=== PATIENT | male | born 1955 | race Hispanic/Latino ===

== ENCOUNTER → 2018-12-12 | Outpatient (CLI) | payer MEDICAID ==
[~2018-12-12] VITALS: Ht 180.3 cm; Wt 179.6 kg
[~2018-12-12] MED LIST: REGADENOSON 0.4 MG/5 ML PF SYG IVP SCH
== END | disposition home or self-care (01) ==
LOC: SHCH 08:12
PROVIDERS: ATTEND Internal Medicine Cardiovascular Disease
DX: Z01.810 Encounter for preprocedural cardiovascular examination (principal)
CPT/HCPCS: 78452; 93017; 96374; A9500 ×2; J2785

== ENCOUNTER 2019-02-16 09:00 | Inpatient (IN) | payer MEDICAID ==
[~2019-02-16] VITALS: Ht 182.9 cm; Wt 172.6 kg
[~2019-02-16 09:00] MED LIST changes: +AEC81 PO; +ALLO100T PO; +AMLO10TA7 PO; +BUDE10.2 IH; +FURO40TA5 PO; +LISI40TA4 PO; +METO50TA18 PO; +METO5TAB7 PO; +MINO2.5T3 PO; +OMEP40CA37 PO; -REGADENOSON 0.4 MG/5 ML PF SYG IVP SCH; +ROSU40 PO; +TAMS-1 PO; +TIOT4MIS5 IH
[2019-02-16 10:01] VITALS: BP 147/69
[2019-02-16 10:03] LABS: BASOPHILS % (AUTO) 0.4 % (0.0-5.0); EOSINOPHILS % (AUTO) 3.6 % (0.0-8.0); HEMATOCRIT 31.5 % (42-54); LYMPHOCYTES % (AUTO) 27.8 % (21.0-51.0); MEAN CORPUSCULAR HEMOGLOBIN 31.2 pg (27.0-33.0); MEAN CORPUSCULAR VOLUME 89.1 fL (79-99); MONOCYTES % (AUTO) 7.4 % (3.0-13.0); NEUTROPHILS % (AUTO) 60.8 % (40.0-77.0); PLATELET COUNT (AUTO) 229 K/uL (130-400); RED BLOOD CELL COUNT(AUTO) 3.54 MIL/uL (4.50-6.20); RED CELL DISTRIBUTION WIDTH 13.8 % (11.0-15.5); WHITE BLOOD COUNT (AUTO) 6.5 K/uL (4.8-10.8)
[2019-02-16 10:19] LABS: INR 0.96 (0.85-1.15); PARTIAL THROMBOPLASTIN TIME 25.4 SEC (26.3-35.5); PROTHROMBIN TIME 10.1 SEC (9.6-11.6)
[2019-02-16 10:22] LABS: ALBUMIN 3.9 g/dL (3.5-5.0); BILIRUBIN,TOTAL 0.3 mg/dL (0.2-1.0); CREATININE 2.9 mg/dL (0.5-1.5); POTASSIUM 3.7 mmol/L (3.5-5.1); TOTAL PROTEIN, SERUM 8.2 g/dL (6.0-8.3)
[2019-02-16] MEDS ORDERED: NOVOLIN SQ ×3 (10:30)
[2019-02-16 10:32] LABS: HEMOGLOBIN A1C 8.1 % (4.0-6.0)
--- NOTE | 2019-02-16 15:02 | NUR ---
SPOKE TO SURESH HERNÁNDEZ/STAFF WILL REPORT ABNORMAL LABS TO , NO NEW ORDERS AT THIS TIME. Addendum: 02/16/19 at 1507 by ÓSCAR OCAMPO RN RN ALSO SPOKE TO CHANDRIKA GUERRERO RN WITH ABNORMAL LABS NO NEW ORDERS.
[2019-02-20] VITALS (44 sets, daily range): BP systolic 82–162; BP diastolic 34–78
[2019-02-20] MEDS: CEFAZOLIN SODIUM 1 GM VIAL IVP SCH (06:00)
[2019-02-20] MEDS ORDERED: SODIUM CHLORIDE 0.9% 1000ML 1,000 ML IV ONE (07:45)
[2019-02-20] MEDS ORDERED: NITROGLYCERIN 50 MG/D5% WATER 1 BOT ONE (07:57)
[2019-02-20] MEDS ORDERED: EPINEPHRINE 1 MG/ML 30ML VIAL IJ ONE (07:57)
[2019-02-20] MEDS ORDERED: LIDOCAINE PF 2% 5ML ABBOJECT ONE (08:10)
[2019-02-20] MEDS ORDERED: FENTANYL CITRATE PF 50 MCG/1 ML 20ML VIAL IJ ONE (08:10)
[2019-02-20] MEDS ORDERED: HEPARIN SODIUM 1000UNIT/ML 10ML VIAL ONE ×2 (08:10→08:27)
[2019-02-20] MEDS ORDERED: PROPOFOL 10 MG/ML 20ML VIAL IV ONE (08:10)
[2019-02-20] MEDS ORDERED: PROTAMINE SULFATE 10 MG/ML 25ML VIAL IV ONE (08:10)
[2019-02-20] MEDS ORDERED: ESMOLOL HCL 10 MG/ML 10 ML VIAL ONE ×2 (08:10→08:12)
[2019-02-20] MEDS ORDERED: EPINEPHRINE 1 MG/ML AMPULE ONE (08:10)
[2019-02-20] MEDS ORDERED: SODIUM BICARB 50MEQ 50ML VIAL ONE (08:10)
[2019-02-20] MEDS ORDERED: NOREPINEPHRINE BITARTRATE 1 MG/1 ML ML IV ONE (08:10)
[2019-02-20] MEDS ORDERED: AMINOCAPROIC ACID 250 MG/ML 20 ML VIAL IV ONE (08:10)
[2019-02-20] MEDS ORDERED: MIDAZOLAM HCL 1 MG/ML 5ML VIAL ONE (08:11)
[2019-02-20] MEDS ORDERED: GLYCOPYRROLATE 1 MG/5 ML SYRINGE ONE (08:11)
[2019-02-20] MEDS ORDERED: ROCURONIUM 10MG/1ML SYR 10 MG/ML ML ONE ×2 (08:11→09:05)
[2019-02-20] MEDS ORDERED: VASOPRESSIN 20 UNITS/ML 1ML VIAL ONE (08:12)
[2019-02-20] MEDS ORDERED: LIDOCAINE HCL-MPF 1% 5ML AMP IJ ONE (08:12)
[2019-02-20] MEDS ORDERED: AMIODARONE HCL 50 MG/ML 3 ML VIAL ONE ×2 (08:12→10:50)
[2019-02-20] MEDS ORDERED: MAGNESIUM SULFATE 1 GM/2 ML VIAL ONE (08:13)
[2019-02-20] MEDS ORDERED: ETOMIDATE 2 MG/ML 10 ML VIAL ONE (08:13)
[2019-02-20] MEDS ORDERED: SUCCINYLCHOLINE 200MG/10ML SYR ONE (08:15)
[2019-02-20] MEDS ORDERED: BACITRACIN 50,000 UNIT VIAL ONE (08:35)
[2019-02-20] MEDS ORDERED: PAPAVERINE HCL 30 MG/ML 2ML VIAL ONE (08:35)
[2019-02-20 09:03] LABS: ABG HCO3 24.8 mmol/L (21.0-28.0); ABG OXYGEN SATURATION 98.4 % (95.0-99.0); ABG PCO2 46 mmHg (35-48)
[2019-02-20] MEDS ORDERED: INSULIN HUMULIN R 100 UNIT/ML 3ML ONE ×2 (09:08→12:30)
[2019-02-20] MEDS ORDERED: SUB TO ALBUTEROL 2.5MG/3ML NEBULES PER P&T IH ONE (09:13)
[2019-02-20] MEDS ORDERED: SODIUM CHLORIDE 0.9% 500ML 500 ML IV SCH (09:41)
[2019-02-20 09:44] LABS: ABG BASE EXCESS 0.6 mmol/L (-2.0-3.0); ABG HCO3 26.2 mmol/L (21.0-28.0); ABG OXYGEN SATURATION 98.2 % (95.0-99.0); ABG PCO2 46 mmHg (35-48)
[2019-02-20] MEDS ORDERED: SODIUM CHLORIDE 0.9% 1000ML 1,000 ML IV SCH (09:45)
[2019-02-20] MEDS ORDERED: ONDANSETRON HCL 4 MG/2 ML VIAL IV PRN (09:45)
[2019-02-20] MEDS ORDERED: NOREPINEPHRINE 4MG/NS 250ML 250 ML IV PRN (09:45)
[2019-02-20] MEDS ORDERED: POTASSIUM CHLORIDE 20MEQ/100ML 100 ML IV PRN (09:45)
[2019-02-20] MEDS ORDERED: SODIUM CHLORIDE 0.9% 10 ML VIAL IVP PRN (09:45)
[2019-02-20] MEDS ORDERED: DEXTROSE 50%-WATER 50 ML DISP.SYRIN IV PRN (09:45)
[2019-02-20] MEDS ORDERED: NITROGLYCERIN 50 MG/D5% WATER 250 BOT IV SCH (09:45)
[2019-02-20] MEDS ORDERED: PROPOFOL 1000 MG/100 ML 100 ML IV PRN (09:45)
[2019-02-20] MEDS ORDERED: EPINEPHRINE 8 MG in DEXTROSE 5%-WATER 250 ML IV PRN (09:45)
[2019-02-20] MEDS ORDERED: SODIUM CHLORIDE 0.9% 250 ML IV PRN (09:45)
[2019-02-20] MEDS ORDERED: ACETAMINOPHEN 325 MG TAB PO PRN (09:45)
[2019-02-20] MEDS ORDERED: POTASSIUM PHOS 15 mMOL+NS250ML 250 ML IV PRN (09:45)
[2019-02-20] MEDS ORDERED: GLUCAGON 1MG KIT 1 MG ML IM PRN (09:45)
[2019-02-20] MEDS ORDERED: MORPHINE SULFATE 2 MG/ML 1ML SYG IV PRN (09:45)
[2019-02-20] MEDS ORDERED: ACETAMINOPHEN 650 MG SUPPOSITORY RC PRN (09:45)
[2019-02-20] MEDS ORDERED: AMINOCAPROIC ACID 15,000 MG in SODIUM CHLORIDE 0.9% 250 ML IV SCH (09:45)
[2019-02-20 10:15] LABS: ABG BASE EXCESS 0.7 mmol/L (-2.0-3.0); ABG HCO3 25.8 mmol/L (21.0-28.0); ABG OXYGEN SATURATION 98.5 % (95.0-99.0); ABG PCO2 43 mmHg (35-48)
[2019-02-20 11:03] LABS: ABG BASE EXCESS -0.6 mmol/L (-2.0-3.0); ABG HCO3 24.5 mmol/L (21.0-28.0); ABG OXYGEN SATURATION 98.5 % (95.0-99.0); ABG PCO2 42 mmHg (35-48)
[2019-02-20 11:14] LABS: ABG BASE EXCESS 1.2 mmol/L (-2.0-3.0); ABG HCO3 25.9 mmol/L (21.0-28.0); ABG OXYGEN SATURATION 98.6 % (95.0-99.0); ABG PCO2 42 mmHg (35-48)
[2019-02-20 11:28] LABS: ABG BASE EXCESS 0.1 mmol/L (-2.0-3.0); ABG HCO3 25.4 mmol/L (21.0-28.0); ABG OXYGEN SATURATION 98.7 % (95.0-99.0); ABG PCO2 44 mmHg (35-48)
[2019-02-20 12:19] LABS: ABG BASE EXCESS -1.2 mmol/L (-2.0-3.0); ABG OXYGEN SATURATION 98.8 % (95.0-99.0); ABG PCO2 36 mmHg (35-48)
--- NOTE | 2019-02-20 12:43 | NUR ---
PT WAS RECEIVED FROM [facility] WITH THE SURGERY STAFF AND DR. Miramontes. SEE ASSESSMENT AND V/S DOCUMENTATION. PT WAS CONNECTED TO VENTILATOR PRESCRIBED. PT HAS MINIMAL URINE OUTPUT AND CHEST TUBE DRAINAGE.
[2019-02-20 13:08] LABS: ABG HCO3 20.9 mmol/L (21.0-28.0); ABG OXYGEN SATURATION 90.7 % (95.0-99.0); ABG PCO2 42 mmHg (35-48)
[2019-02-20 13:18] LABS: MEAN CORPUSCULAR HEMOGLOBIN 30.3 pg (27.0-33.0); MEAN CORPUSCULAR HGB CONC 33.9 g/dL (32.0-36.0); MEAN CORPUSCULAR VOLUME 89.4 fL (79-99); PLATELET COUNT (AUTO) 230 K/uL (130-400); RED BLOOD CELL COUNT(AUTO) 2.91 MIL/uL (4.50-6.20); RED CELL DISTRIBUTION WIDTH 13.9 % (11.0-15.5); WHITE BLOOD COUNT (AUTO) 21.3 K/uL (4.8-10.8)
--- NOTE | 2019-02-20 13:30 | NUR ---
PT'S FAMILY HERE TO VISIT WITH PATIENT AND LARGE AMOUNT OF FAMILY MEMBERS WERE ADVISED OF THE PATIENT BEING SLIGHTLY AWAKE AND WILL NOD YES OR NO APPROPRIATELY. VISITING TIMES WERE EXPLAINED TO PATIENT'S FAMILY MEMBERS AND WERE ACKNOWLEDGED.
[2019-02-20 13:33] LABS: INR 1.03 (0.85-1.15); PARTIAL THROMBOPLASTIN TIME 24.4 SEC (26.3-35.5); PROTHROMBIN TIME 10.8 SEC (9.6-11.6)
[2019-02-20 13:37] LABS: CREATININE 2.7 mg/dL (0.5-1.5); MAGNESIUM 1.3 mg/dL (1.80-2.40); PHOSPHORUS 4.4 mg/dL (2.5-4.9); POTASSIUM 3.5 mmol/L (3.5-5.1)
[2019-02-20] MEDS: MORPHINE SULFATE 4 MG/1ML SYG IV PRN ×2 (14:08→20:43)
[2019-02-20] MEDS: ALBUMIN (HUMAN) 5% 250 ML IV PRN ×2 (14:09→14:13)
[2019-02-20] MEDS: INSULIN REGULAR, HUMAN 3ML 100 UNIT in SODIUM CHLORIDE 0.9% 99 ML IV SCH ×4 (14:11→21:19)
[2019-02-20] MEDS: MAGNESIUM 2GM PREMIX 50ML 50 ML IV PRN (14:39)
[2019-02-20] MEDS: CEFAZOLIN SODIUM 1 GM VIAL IV SCH ×2 (14:39→23:48)
[2019-02-20 14:57] LABS: ABG BASE EXCESS -5.7 mmol/L (-2.0-3.0); ABG HCO3 20.3 mmol/L (21.0-28.0); ABG OXYGEN SATURATION 94.2 % (95.0-99.0); ABG PCO2 42 mmHg (35-48)
[2019-02-20] MEDS: SODIUM BICARB 50MEQ 50ML VIAL IV PRN ×5 (15:02→18:26)
[2019-02-20 16:23] LABS: ABG HCO3 20.1 mmol/L (21.0-28.0); ABG OXYGEN SATURATION 93.9 % (95.0-99.0); ABG PCO2 37 mmHg (35-48)
[2019-02-20] MEDS: IPRATROPIUM/ALBUTEROL SULFATE 3 ML SOLUTION IH SCH (17:44)
--- NOTE | 2019-02-20 17:45 | NUR ---
ABG'S HAVE BEEN OBTAINED AND O2 REMAINS LOW AND HAVE GIVEN 6 AMPS OF BICARB TOTAL AND WILL CONTINUE TO MONITOR THE ABG'S PT IS WIDE AWAKE AND FOLLOWS COMMANDS.
--- NOTE | 2019-02-20 17:50 | NUR ---
JUST CALLED AND WANTS THE NURSING STAFF TO BE AWARE OF PT NEEDING A TOTAL RIGHT KNEE REPLACEMENT AND HAVE TO BE CAREFUL WHEN PHYSICAL THERAPY WORKS WITH THE PATIENT.
[2019-02-20 18:19] LABS: ABG BASE EXCESS -2.2 mmol/L (-2.0-3.0); ABG HCO3 22.5 mmol/L (21.0-28.0); ABG OXYGEN SATURATION 95.8 % (95.0-99.0); ABG PCO2 38 mmHg (35-48)
[2019-02-20] MEDS: BUDESONIDE 0.5 MG/2 ML INH IH SCH (19:13)
--- NOTE | 2019-02-20 19:59 | NUR ---
Received patient at 1900 intubated and fully awake, chest tubes in place, delacruz producing minimal urine, on 0.03 mcg/kg/min of Epi and 2 mcg /min of Levofed. These medications were titrated for blood pressure parameters. Dr. Cleveland called at 1930 and was updated on patient status. Field Crop Harvest Contractor informed MD that patient is making slow progress on the bicarb base excess level on the ABG. Dr. Cleveland ordered Bipap to be used on this patient post extubation if needed.
[2019-02-20 20:10] LABS: ABG BASE EXCESS 2.2 mmol/L (-2.0-3.0); ABG HCO3 26.3 mmol/L (21.0-28.0); ABG OXYGEN SATURATION 95.2 % (95.0-99.0); ABG PCO2 39 mmHg (35-48)
[2019-02-20] MEDS ORDERED: CALCIUM GLUCONATE 1 GM/10 ML VIAL IV ONE (20:21)
[2019-02-20] MEDS ORDERED: SODIUM CHLORIDE 0.9% 50 ML IV ONE (20:23)
[2019-02-20] MEDS: CALCIUM GLUCONATE 1 GM in SODIUM CHLORIDE 0.9% 50 ML IV PRN (20:25)
[2019-02-20] MEDS: FAMOTIDINE/PF 20 MG/2 ML VIAL IV SCH (20:31)
[2019-02-20] MEDS ORDERED: SUB PER P&T FOR ASTHMA OR COPD RECOMMENDATION IH SCH (21:00)
--- NOTE | 2019-02-20 21:15 | NUR ---
Patient passed ventilator weaning trials and ABG base excess is 2. Patient extubated at 2054 to aerosol mask at Fio2 of 40%. Will recheck ABG in 2 hrs per protocol.
[2019-02-20] MEDS: ATORVASTATIN CALCIUM 40 MG TABLET PO SCH (21:22)
[2019-02-20] MEDS: TAMSULOSIN HCL 0.4 MG CAP.ER.24H PO SCH (21:22)
[2019-02-20 22:17] LABS: ABG BASE EXCESS 4.2 mmol/L (-2.0-3.0); ABG HCO3 28.3 mmol/L (21.0-28.0); ABG PCO2 40 mmHg (35-48)
[2019-02-20] MEDS: TRAMADOL HCL 50 MG TABLET PO PRN (22:17)
[2019-02-21] VITALS (50 sets, daily range): BP systolic 100–173; BP diastolic 39–90
[2019-02-21] MEDS: IPRATROPIUM/ALBUTEROL SULFATE 3 ML SOLUTION IH SCH ×5 (00:03→23:54)
[2019-02-21] MEDS: INSULIN REGULAR, HUMAN 3ML 100 UNIT in SODIUM CHLORIDE 0.9% 99 ML IV SCH ×4 (03:12→20:25)
[2019-02-21 03:41] LABS: ABG HCO3 27.4 mmol/L (21.0-28.0); ABG OXYGEN SATURATION 92.8 % (95.0-99.0); ABG PCO2 41 mmHg (35-48)
[2019-02-21 04:00] LABS: HEMATOCRIT 26.6 % (42-54); MEAN CORPUSCULAR HGB CONC 34.3 g/dL (32.0-36.0); MEAN CORPUSCULAR VOLUME 90.4 fL (79-99); PLATELET COUNT (AUTO) 191 K/uL (130-400); RED BLOOD CELL COUNT(AUTO) 2.94 MIL/uL (4.50-6.20); RED CELL DISTRIBUTION WIDTH 14.1 % (11.0-15.5); WHITE BLOOD COUNT (AUTO) 11.8 K/uL (4.8-10.8)
[2019-02-21 04:13] LABS: CREATININE 3.2 mg/dL (0.5-1.5); MAGNESIUM 1.8 mg/dL (1.80-2.40); PHOSPHORUS 3.5 mg/dL (2.5-4.9); POTASSIUM 4.5 mmol/L (3.5-5.1)
[2019-02-21 04:14] LABS: INR 1.02 (0.85-1.15); PARTIAL THROMBOPLASTIN TIME 25.7 SEC (26.3-35.5); PROTHROMBIN TIME 10.7 SEC (9.6-11.6)
[2019-02-21] MEDS ORDERED: CALCIUM GLUCONATE 1 GM/10 ML VIAL IV ONE (04:30)
[2019-02-21] MEDS ORDERED: SODIUM CHLORIDE 0.9% 50 ML IV ONE (04:37)
[2019-02-21] MEDS: CALCIUM GLUCONATE 1 GM in SODIUM CHLORIDE 0.9% 50 ML IV PRN (04:38)
[2019-02-21] MEDS: TRAMADOL HCL 50 MG TABLET PO PRN ×3 (04:39→16:21)
[2019-02-21] MEDS: MAGNESIUM 2GM PREMIX 50ML 50 ML IV PRN (04:39)
[2019-02-21] MEDS: CEFAZOLIN SODIUM 1 GM VIAL IV SCH (06:00)
[2019-02-21] MEDS: CEFAZOLIN SODIUM 1 GM VIAL IVP SCH (06:00)
[2019-02-21] MEDS: BUDESONIDE 0.5 MG/2 ML INH IH SCH ×2 (07:43→18:25)
[2019-02-21] MEDS: FAMOTIDINE/PF 20 MG/2 ML VIAL IV SCH (08:40)
[2019-02-21] MEDS: ASPIRIN 325MG EC TAB 325 MG TABLET.DR PO SCH (08:40)
[2019-02-21] MEDS ORDERED: TIOTROPIUM BROMIDE 4 GM IH SCH (09:00)
[2019-02-21] MEDS: METOPROLOL TARTRATE 25 MG TAB PO SCH ×2 (09:44→20:06)
--- NOTE | 2019-02-21 10:47 | NUR ---
10:11 HOLD PHYSICAL THERAPY EVALUATION THIS AM PER ERIC MELENDEZ Addendum: 02/21/19 at 1048 by NASH STEVE PT PT Amended: Links added.
--- NOTE | 2019-02-21 17:11 | NUR ---
PATIENT TRANSFERRED TO [facility] WITH RN. AT BEDSIDE. PATIENT TOLERATED MOVE WELL. REPORT GIVEN TO JOSEPH Kurtz RN. ENDORSED PENDING DC OF RAUL. ALL QUESTIONS ANSWERED.
[2019-02-21] MEDS: ACETAMINOPHEN 325 MG TAB PO PRN (19:50)
[2019-02-21] MEDS: TAMSULOSIN HCL 0.4 MG CAP.ER.24H PO SCH (20:06)
[2019-02-21] MEDS: ATORVASTATIN CALCIUM 40 MG TABLET PO SCH (20:06)
[2019-02-22] VITALS (45 sets, daily range): BP systolic 100–183; BP diastolic 32–81
[2019-02-22] MEDS: TRAMADOL HCL 50 MG TABLET PO PRN ×3 (00:26→08:50)
[2019-02-22 04:48] LABS: HEMATOCRIT 24.5 % (42-54); MEAN CORPUSCULAR HEMOGLOBIN 31.3 pg (27.0-33.0); MEAN CORPUSCULAR HGB CONC 34.3 g/dL (32.0-36.0); MEAN CORPUSCULAR VOLUME 91.1 fL (79-99); NUCLEATED RED BLOOD CELLS 0.1 % (0.0-0.19); PLATELET COUNT (AUTO) 182 K/uL (130-400); RED BLOOD CELL COUNT(AUTO) 2.69 MIL/uL (4.50-6.20); RED CELL DISTRIBUTION WIDTH 14.3 % (11.0-15.5); WHITE BLOOD COUNT (AUTO) 10.7 K/uL (4.8-10.8)
[2019-02-22 05:02] LABS: CREATININE 3.4 mg/dL (0.5-1.5); POTASSIUM 4.4 mmol/L (3.5-5.1)
[2019-02-22] MEDS: IPRATROPIUM/ALBUTEROL SULFATE 3 ML SOLUTION IH SCH ×4 (06:38→23:39)
[2019-02-22] MEDS: BUDESONIDE 0.5 MG/2 ML INH IH SCH ×2 (06:38→18:37)
[2019-02-22] MEDS: FAMOTIDINE/PF 20 MG/2 ML VIAL IV SCH (08:17)
[2019-02-22] MEDS: ASPIRIN 325MG EC TAB 325 MG TABLET.DR PO SCH (08:17)
[2019-02-22] MEDS: METOPROLOL TARTRATE 25 MG TAB PO SCH ×2 (08:17→20:04)
[2019-02-22] MEDS: ENOXAPARIN SODIUM 30 MG/0.3 ML SQ SCH ×2 (08:18→10:38)
--- NOTE | 2019-02-22 08:19 | NUR ---
HELD DOSE OF LOVENOX FOR NOW, REMAINS WITH CHEST TUBES X2.
[2019-02-22] MEDS: INSULIN GLARGINE 100 UNITS/ML 10 ML VIAL SQ SCH ×2 (08:43→22:05)
[2019-02-22] MEDS ORDERED: FUROSEMIDE 10 MG/ML 4ML VIAL IV SCH (09:00)
[2019-02-22] MEDS: AMLODIPINE BESYLATE 5 MG TAB PO SCH (09:51)
[2019-02-22] MEDS: MINOXIDIL 2.5 MG TAB PO SCH (10:37)
--- NOTE | 2019-02-22 10:45 | NUR ---
DISCONTINUED A -LINE TO LEFT WRIST AREA, CATHETER INTACT, APPLIED PRESSURE TO SITE FOR 5 MINS, COVERED WITH 4X4 GAUZE, AND SECURED WITH OPSITE.
[2019-02-22] MEDS: HYDROCODONE/ACETAMINOPHEN 5/325 MG TAB PO PRN ×3 (11:45→20:05)
[2019-02-22] MEDS: INSULIN HUMULIN R 100 UNIT/ML 3ML SQ SCH ×3 (11:50→22:06)
--- NOTE | 2019-02-22 14:20 | NUR ---
DC PLAN VISITED WITH PATIENT. PATIENT LIVES WITH SPOUSE. ISSUES WITH WALKER TO SHORT. PATIENT HAS NO SERVICES. HAS CPAP. INTERESTED IN GOING TO A FACILITY. Addendum: 02/22/19 at 1423 by FESTUS CEDENO RN CM Amended: Links added.
[2019-02-22 16:14] LABS: APPEARANCE,URINE Cloudy (CLEAR); BILIRUBIN,URINE Negative (NEGATIVE); COLOR,URINE Yellow (YELLOW); GLUCOSE, URINE (UA) TRACE mg/dL (NEGATIVE); KETONES,URINE Negative (NEGATIVE); LEUKOCYTE ESTERASE ,URINE Negative (NEGATIVE); NITRATE,URINE Negative (NEGATIVE); OCCULT BLOOD,URINE Moderate (NEGATIVE); PROTEIN,URINE 300 mg/dL (NEGATIVE)
[2019-02-22 16:28] LABS: BACTERIA,URINE Moderate /HPF (None Seen)
[2019-02-22 16:29] LABS: MUCUS,URINE Moderate LPF (None Seen)
[2019-02-22] MEDS: TAMSULOSIN HCL 0.4 MG CAP.ER.24H PO SCH (20:06)
[2019-02-22] MEDS: ATORVASTATIN CALCIUM 40 MG TABLET PO SCH (20:06)
[2019-02-23] VITALS (10 sets, daily range): BP systolic 100–138; BP diastolic 40–68
[2019-02-23] MEDS: TRAMADOL HCL 50 MG TABLET PO PRN (01:55)
[2019-02-23 03:25] LABS: HEMATOCRIT 24.8 % (42-54); MEAN CORPUSCULAR HEMOGLOBIN 31.2 pg (27.0-33.0); MEAN CORPUSCULAR HGB CONC 33.6 g/dL (32.0-36.0); MEAN CORPUSCULAR VOLUME 92.8 fL (79-99); NUCLEATED RED BLOOD CELLS 0.1 % (0.0-0.19); PLATELET COUNT (AUTO) 192 K/uL (130-400); RED BLOOD CELL COUNT(AUTO) 2.67 MIL/uL (4.50-6.20); RED CELL DISTRIBUTION WIDTH 14.3 % (11.0-15.5); WHITE BLOOD COUNT (AUTO) 10.4 K/uL (4.8-10.8)
[2019-02-23 03:49] LABS: POTASSIUM 4.6 mmol/L (3.5-5.1)
[2019-02-23 04:09] LABS: % IRON SATURATION 9.5 % (30-44)
[2019-02-23] MEDS: ACETAMINOPHEN 325 MG TAB PO PRN (06:17)
[2019-02-23] MEDS: IPRATROPIUM/ALBUTEROL SULFATE 3 ML SOLUTION IH SCH ×4 (07:00→23:22)
[2019-02-23] MEDS: BUDESONIDE 0.5 MG/2 ML INH IH SCH ×2 (07:00→19:24)
--- NOTE | 2019-02-23 07:30 | NUR ---
AM NOTE Awake, alert, and oriented x3. Does not appear in distress, Bipap off now on Venti mask at 40%, tolerating well. Dr. Mccloud in to see pt, update given, new orders received and will be carried out.
[2019-02-23] MEDS: INSULIN HUMULIN R 100 UNIT/ML 3ML SQ SCH ×4 (07:33→21:19)
[2019-02-23] MEDS: INSULIN GLARGINE 100 UNITS/ML 10 ML VIAL SQ SCH ×2 (07:34→21:18)
--- NOTE | 2019-02-23 07:36 | NUR ---
rounding at this time and notified regarding 10 sec episode of afib and did not sustain.Pt. denied chest pain,palpitation.V/S stable.BUN is critical but pt. has CKD stage 4.No new order received.
[2019-02-23 08:21] LABS: ABG BASE EXCESS 1.7 mmol/L (-2.0-3.0); ABG HCO3 27.1 mmol/L (21.0-28.0); ABG OXYGEN SATURATION 95.6 % (95.0-99.0); ABG PCO2 45 mmHg (35-48)
--- NOTE | 2019-02-23 09:05 | NUR ---
MD VISIT Dr. Adams in to see pt, update given. New orders received and will carry out.
[2019-02-23] MEDS: FAMOTIDINE/PF 20 MG/2 ML VIAL IV SCH (09:25)
[2019-02-23] MEDS: ASPIRIN 325MG EC TAB 325 MG TABLET.DR PO SCH (09:25)
[2019-02-23] MEDS: MINOXIDIL 2.5 MG TAB PO SCH (09:25)
[2019-02-23] MEDS: METOPROLOL TARTRATE 25 MG TAB PO SCH ×2 (09:25→21:08)
[2019-02-23] MEDS: AMLODIPINE BESYLATE 5 MG TAB PO SCH (09:25)
[2019-02-23] MEDS: FUROSEMIDE 10 MG/ML 4ML VIAL IV SCH ×2 (09:26→21:07)
--- NOTE | 2019-02-23 09:35 | NUR ---
DC CHEST TUBES Chest tubes x2 discontinued as ordered, procedure tolerated well. Site was covered with 4x4 gauze and Medfix surgical dressing. No oozing noted. Premedicated for pain.
[2019-02-23] MEDS: HYDROCODONE/ACETAMINOPHEN 5/325 MG TAB PO PRN ×3 (09:40→23:37)
[2019-02-23] MEDS: ENOXAPARIN SODIUM 40 MG/0.4 ML SYRINGE SQ SCH (10:03)
--- NOTE | 2019-02-23 10:25 | NUR ---
TRANSFER Pt transferred to room 225, in no distress. All belongings given to spouse. Telemetry pack applied prior to transfer. Report given to ERIC Arce.
--- NOTE | 2019-02-23 16:04 | NUR ---
DR. JENKINS IN ROOM SPEAKING WITH PT. RE:RENAL FUNCTION AND INFORMING PT. OF RESTRICTED PO FLUID INTAKE; PT. VERBALIZED UNDERSTANDING. FAMILY MEMBER AT BEDSIDE.
[2019-02-23] MEDS ORDERED: COMPOUND IV MISC 1 EACH IVSOLN MISC PRN (16:15)
--- NOTE | 2019-02-23 19:44 | NUR ---
INITIAL ASSESSMENT PATIENT IS RESTING IN BED WITH NO COMPLAINTS OF PAIN AT THIS TIME. PATIENT IS ALERT AND ORIENTED X4. PATIENT IS CURRENTLY ON A VENTI MASK BREATHING COMFORTABLY WITH NO SIGNS OR COMPLAINTS OF SHORTNESS OF BREATH. FAMILY IS AT BEDSIDE. OLSEN IS IN PLACE AND IS AT BEDSIDE PATENT AND FREEFLOWING. PATIENTS CALL LIGHT IS WITHIN REACH AND DEMONSTRATES PROPER USE. BEDSIDE TABLE WITHIN REACH. NO VOICED NEEDS AT THIS TIME. PATIENT REINFORCED TO CALL FOR ANY NEEDS.
[2019-02-23] MEDS: ATORVASTATIN CALCIUM 40 MG TABLET PO SCH (21:08)
[2019-02-23] MEDS: TAMSULOSIN HCL 0.4 MG CAP.ER.24H PO SCH (21:08)
[2019-02-23] MEDS: IRON SUCROSE COMPLEX 100 MG in SODIUM CHLORIDE 0.9% 50 ML IV SCH (21:30)
--- NOTE | 2019-02-23 22:05 | NUR ---
PATIENT REQUESTED BEDPAN PATIENT REQUESTED BEDPAN AND HAD A BM. PATIENT WAS TURNED AND MADE COMFORTABLE AT THIS TIME AND TURNED. NO COMPLAINTS OF PAIN. PATIENTS CALL LIGHT WITHIN REACH.
--- NOTE | 2019-02-23 22:15 | NUR ---
IJ REMOVAL PATIENTS RIGHT IJ WAS REMOVED. PRESSURE WAS HELD FOR 5 MINUTES. NO BLEEDING NOTED. GAUZE DRESSING WAS PLACED. PATIENT WILL BE MONITORED FOR BLEEDING.
--- NOTE | 2019-02-23 23:15 | NUR ---
FAMILY REQUESTING TURNING CAME OUT OF THE ROOM AND ASKED AT WHAT TIME WAS THE PATIENT DUE TO BE TURNED. I NOTIFIED HER THAT WE TURNED THE PATIENT AT 2200 AFTER THE PATIENT HAD A BOWEL MOVEMENT BUT IF THE PATIENT NEEDED TO BE TURNED THAT WE COULD DO SO.
--- NOTE | 2019-02-23 23:25 | NUR ---
PAIN MANAGEMENT AFTER TURNING THE PATIENT THE PATIENT WAS ASSESSED FOR PAIN. PATIENT RATED A PAIN SCORE OF A 7 OUT OF 10. PATIENTS HUMA ZIMMERMANCO WAS AVAILABLE AT 2318 AND WAS GIVEN TO THE PATIENT.
[2019-02-24] VITALS: BP 123/56
--- NOTE | 2019-02-24 00:30 | NUR ---
FAMILY COMPLAINT CAME OUT AND ASKED THE PATIENT TO BE TURNED. PATIENTS THEN COMPLAINED THAT THE PATIENT WAS NOT BEING TURNED PROPERLY THAT THE PATIENT SHOULD HAVE TO WAIT 2 HOURS TO BE TURNED. PATIENT THEN MADE A PHONE CALL TO [facility] REQUESTING TO BE TRANSFERRED BECAUSE HER WAS NOT BEING TURNED PROPERLY AND THAT HIS PAIN WAS NOT BEING MANAGED APPROPRIATELY.
--- NOTE | 2019-02-24 00:45 | NUR ---
PATIENT BATHED PATIENT WAS BATHED. ALL LINEN WAS CHANGED. PATIENT WAS POSITIONED AND MADE COMFORTABLE AT THIS TIME. PATIENT IS CURRENTLY ON THE BIPAP. NO COMPLAINTS OR SIGNS OF SHORTNESS OF BREATH. NO SIGNS OF DISTRESS. PATIENT WAS MOANING BUT ONLY WHEN TURNING. ONCE PATIENT WAS COMFORTABLE NO COMPLAINTS OF PAIN VOICED.
--- NOTE | 2019-02-24 02:30 | NUR ---
REPOSITION PATIENT WAS REPOSITIONED IN BED AND MADE COMFORTABLE. PATIENT CURRENTLY HAS BIPAP IN PLACE WITH NO SIGNS OF DISTRESS AND NO SIGNS OF SHORTNESS OF BREATH. PATIENT CURRENTLY HAS HAS OLSEN IN PLACE THAT IS AT BEDSIDE PATENT AND FREE FLOWING. PATIENTS IS AT BEDSIDE. CALL LIGHT IS WITHIN REACH. PATIENT REQUESTING PAIN MEDICATION AND WAS GIVEN AT THIS TIME. NO OTHER NEEDS VOICED. PATIENT REINFORCED TO CALL IF ANY OTHER NEEDS.
[2019-02-24] MEDS: TRAMADOL HCL 50 MG TABLET PO PRN ×2 (02:55→23:19)
[2019-02-24 03:40] VITALS: BP 129/67
[2019-02-24 03:57] LABS: MEAN CORPUSCULAR HEMOGLOBIN 30.8 pg (27.0-33.0); MEAN CORPUSCULAR HGB CONC 33.9 g/dL (32.0-36.0); NUCLEATED RED BLOOD CELLS 0.1 % (0.0-0.19); PLATELET COUNT (AUTO) 214 K/uL (130-400); RED BLOOD CELL COUNT(AUTO) 2.52 MIL/uL (4.50-6.20); RED CELL DISTRIBUTION WIDTH 14.2 % (11.0-15.5)
--- NOTE | 2019-02-24 04:00 | NUR ---
ASSESSMENT PATIENT IS RESTING IN BED. BIPAP IS IN PLACE. NO COMPLAINTS OF PAIN. NO SIGNS OF DISTRESS. NO SHORTNESS OF BREATH. PATIENT IS REPOSITIONED IN BED. CALL LIGHT IS WITHIN REACH. IS AT BEDSIDE. OLSEN IS IN PLACE AT BEDSIDE PATENT AND FREE FLOWING. NO OTHER NEEDS AT THIS TIME.
[2019-02-24 04:19] LABS: ALBUMIN 2.2 g/dL (3.5-5.0); BILIRUBIN,TOTAL 0.4 mg/dL (0.2-1.0); CREATININE 3.6 mg/dL (0.5-1.5); MAGNESIUM 2.4 mg/dL (1.80-2.40); PHOSPHORUS 5.3 mg/dL (2.5-4.9); POTASSIUM 3.8 mmol/L (3.5-5.1); TOTAL PROTEIN, SERUM 6.6 g/dL (6.0-8.3); URIC ACID 11.8 mg/dL (2.6-7.2)
[2019-02-24] MEDS: IPRATROPIUM/ALBUTEROL SULFATE 3 ML SOLUTION IH SCH ×4 (06:14→23:16)
[2019-02-24] MEDS: BUDESONIDE 0.5 MG/2 ML INH IH SCH ×2 (06:40→19:29)
[2019-02-24 07:27] VITALS: BP 103/60
--- NOTE | 2019-02-24 07:34 | NUR ---
ENCOUNTERED PATIENT LAYING ON BED IN A SEMI-PRIEST'S POSITION WITH BIPAP ON. PATIENT DENIES PAIN. CALL LIGHT WITHIN REACH. AT BEDSIDE.
--- NOTE | 2019-02-24 08:00 | NUR ---
REINFORCED USE OF IS. VOICED THAT PATIENT HAS NOT USED IS IN A FEW DAYS AND ONLY DID IT ONCE SINCE MACHINE WAS GIVEN TO HIM. PATIENT WAS PLACED ON 4L O2 PER NASAL CANNULA. 02 SAT:95%. PATIENT TRIED IS AND WAS ABLE TO MAKE 1250ML IN VOLUME RIGHT AWAY. ENCOURAGED CONTINUED USE AT LEAST 10 X EVERY HOUR WHILE AWAKE. PATIENT AND BOTH VERBALIZED UNDERSTANDING.
[2019-02-24] MEDS: INSULIN HUMULIN R 100 UNIT/ML 3ML SQ SCH ×4 (08:03→21:20)
[2019-02-24] MEDS: INSULIN GLARGINE 100 UNITS/ML 10 ML VIAL SQ SCH ×2 (08:04→20:50)
[2019-02-24] MEDS: ASPIRIN 325MG EC TAB 325 MG TABLET.DR PO SCH (08:16)
[2019-02-24] MEDS: MINOXIDIL 2.5 MG TAB PO SCH (08:16)
[2019-02-24] MEDS: METOPROLOL TARTRATE 25 MG TAB PO SCH ×2 (08:16→20:32)
[2019-02-24] MEDS: FAMOTIDINE/PF 20 MG/2 ML VIAL IV SCH (08:16)
[2019-02-24] MEDS: AMLODIPINE BESYLATE 5 MG TAB PO SCH (08:16)
[2019-02-24] MEDS: FUROSEMIDE 10 MG/ML 4ML VIAL IV SCH ×2 (08:17→20:32)
[2019-02-24] MEDS: HYDROCODONE/ACETAMINOPHEN 5/325 MG TAB PO PRN ×2 (09:26→16:53)
[2019-02-24] MEDS: ENOXAPARIN SODIUM 40 MG/0.4 ML SYRINGE SQ SCH (10:45)
[2019-02-24 11:05] LABS: APPEARANCE,URINE Clear (CLEAR); BILIRUBIN,URINE Negative (NEGATIVE); COLOR,URINE Yellow (YELLOW); GLUCOSE, URINE (UA) Negative (NEGATIVE); KETONES,URINE Negative (NEGATIVE); LEUKOCYTE ESTERASE ,URINE Negative (NEGATIVE); NITRATE,URINE Negative (NEGATIVE); OCCULT BLOOD,URINE Small (NEGATIVE); PROTEIN,URINE POS 1+ mg/dL (NEGATIVE); UROBILINOGEN,URINE 0.2 mg/dL (0.2-1.0)
[2019-02-24 11:12] VITALS: BP 119/55
[2019-02-24 11:27] LABS: BACTERIA,URINE Rare /HPF (None Seen); MUCUS,URINE Few LPF (None Seen); SQUAMOUS EPITHELIAL CELL,UR 0-2 /HPF (0-2); WBC,URINE 0-1 /HPF (0-1)
--- NOTE | 2019-02-24 12:30 | NUR ---
DR. MCKEON IS MAKING HIS ROUNDS. PATIENT IS OFF BIPAP AT THIS TIME AND IS TOLERATING NASAL CANNULA AT 4L WELL. MD ENCOURAGED PATIENT TO USE HIS OWN CPAP.
[2019-02-24 15:16] VITALS: BP 127/82
[2019-02-24 19:34] VITALS: BP 139/73
[2019-02-24] MEDS: ATORVASTATIN CALCIUM 40 MG TABLET PO SCH (20:32)
[2019-02-24] MEDS: TAMSULOSIN HCL 0.4 MG CAP.ER.24H PO SCH (20:32)
[2019-02-24] MEDS: IRON SUCROSE COMPLEX 100 MG in SODIUM CHLORIDE 0.9% 50 ML IV SCH (20:36)
[2019-02-25] VITALS (7 sets, daily range): BP systolic 122–178; BP diastolic 43–88
[2019-02-25] MEDS: HYDROCODONE/ACETAMINOPHEN 5/325 MG TAB PO PRN ×4 (02:30→21:54)
--- NOTE | 2019-02-25 03:11 | NUR ---
Frequent turning and manager of disaster recovery Patient reposition in bed and made comfortable approx every 1-2 hours and or as per patients request. CPAP with 4L NS placed by RT. Patients oxygen saturations remain stable. Pt AOX3, No signs of distress and no signs of shortness of breath. Patient and spouse teaching provided regarding Urinal. Patient was also given at bed bath. Patient has been pressing the call light and nurse or LIFE SKILLS EDUCATOR attends to help patient void using a bedside urinal. Pain management has been provided in a timely matter to patient as requested following doctors medication orders. No other needs have been voiced, patient and at bedside have been reinforced to call if any other needs.
[2019-02-25] MEDS: INSULIN HUMULIN R 100 UNIT/ML 3ML SQ SCH ×4 (06:24→20:47)
[2019-02-25] MEDS: IPRATROPIUM/ALBUTEROL SULFATE 3 ML SOLUTION IH SCH ×4 (06:31→23:34)
[2019-02-25] MEDS: BUDESONIDE 0.5 MG/2 ML INH IH SCH ×2 (06:43→18:48)
[2019-02-25] MEDS: INSULIN GLARGINE 100 UNITS/ML 10 ML VIAL SQ SCH ×2 (07:30→20:46)
--- NOTE | 2019-02-25 07:40 | NUR ---
FOLLOW UP WITH PT AND : ROUNDED ON PT THIS MORNING. PT APPEARS COMFORTABLE. STATES HE SLEPT AT INTERVALS. INFORMED PT AND ABOUT DR. RAUSCH NOT ORDERING SPECIAL BED OR ROTATING MATTRESS AT THIS TIME. DR. RAUSCH DID OK THE USE OF A WALKER BY PHYSICAL THERAPY SO THAT PATIENT CAN BE OUT OF BED. CONTINUES TO ASK FOR SPECIAL BED/MATTRESS. OFFERED WAFFLE MATTRESS--- DECLINED AT THIS TIME. PT/ EDUCATION DONE ON: DEEP BREATH AND COUGHING, SPLINTING OF CHEST WITH PILLOW, INCENTIVE SPIROMETRY, SITTING IN CHAIR, ROM EXERCISES. BOTH VERBALIZED UNDERSTANDING. ALSO INFORMED PT'S ABOUT TURNING PT EVERY 2 HOURS. NIGHT NURSE REPORTED TO ME THAT PT'S WAS REQUESTING PT TO BE TURNED EVERY 15 MIN OR 30 MIN OR 45 MINS AND WAS CONSTANTLY IN ROOM. INFORMED THAT STAFF WILL BE ASSISTING IN TURNING THE PT EVERY 2 [address] Semaj MORROW WAS IN TO SEE PT EARLIER AND ORDERED TO HAVE WALKER AND HAVE PHYSICAL THERAPY SIT PT IN CHAIR TODAY. PT AND AWARE OF PLAN OF CARE FOR TODAY AND ACTIVITY ORDERED. BOTH VERBALIZED UNDERSTANDING, QUESTIONS ANSWERED. WILL CONTINUE TO MONITOR AND INFORMED THEM THAT I WOULD BE BACK TO CHECK ON PT THROUGHOUT THE DAY. REPORTED OFF TO PRIMARY CARE NURSE ROXI.
[2019-02-25] MEDS: MINOXIDIL 2.5 MG TAB PO SCH (09:03)
[2019-02-25] MEDS: AMLODIPINE BESYLATE 5 MG TAB PO SCH (09:03)
[2019-02-25] MEDS: METOPROLOL TARTRATE 25 MG TAB PO SCH ×2 (09:03→20:48)
[2019-02-25] MEDS: ASPIRIN 325MG EC TAB 325 MG TABLET.DR PO SCH (09:04)
[2019-02-25] MEDS: FUROSEMIDE 10 MG/ML 4ML VIAL IV SCH ×2 (09:04→20:49)
[2019-02-25] MEDS: FAMOTIDINE/PF 20 MG/2 ML VIAL IV SCH (09:04)
[2019-02-25] MEDS: ENOXAPARIN SODIUM 40 MG/0.4 ML SYRINGE SQ SCH (09:05)
--- NOTE | 2019-02-25 11:28 | NUR ---
DR. RAUSCH IN ROOM SPEAKING WITH PT. AND PT.'S SPOUSE AT BEDSIDE RE:IMPORTANCE OF IS USE AND INCREASED PHYSICAL ACTIVITY, VERBALIZED MUTUAL UNDERSTANDING.
--- NOTE | 2019-02-25 12:57 | NUR ---
DR. Irizarry SY IN ROOM SPEAKING WITH PT. AND PT.'S SPOUSE AT BEDSIDE.
--- NOTE | 2019-02-25 16:46 | NUR ---
DR. JENKINS IN ROOM SPEAKING WITH PT. AND FAMILY MEMBERS AT BEDSIDE.
[2019-02-25] MEDS: TAMSULOSIN HCL 0.4 MG CAP.ER.24H PO SCH (20:48)
[2019-02-25] MEDS: ATORVASTATIN CALCIUM 40 MG TABLET PO SCH (20:48)
[2019-02-25] MEDS: TRAMADOL HCL 50 MG TABLET PO PRN (20:49)
[2019-02-25] MEDS: IRON SUCROSE COMPLEX 100 MG in SODIUM CHLORIDE 0.9% 50 ML IV SCH (20:51)
--- NOTE | 2019-02-25 22:00 | NUR ---
Assessment Pt AOX3, denies any chest pain and or shortness of breath. Placed on CPAP with 4L NC by RT. Patient continues to have back pain and has been medicated appropriately according to doctors orders. at bedside and assist with some ADL. Call light with in reach and advise to call for any assistance. Pt continues to be rotating and made comfortable in bed every 2 hours. No further concerns by family.
[2019-02-26] MEDS: HYDROCODONE/ACETAMINOPHEN 5/325 MG TAB PO PRN ×4 (02:27→19:56)
[2019-02-26 03:28] VITALS: BP 148/74
[2019-02-26] MEDS: TRAMADOL HCL 50 MG TABLET PO PRN ×3 (04:02→17:49)
[2019-02-26 05:53] LABS: HEMATOCRIT 24.1 % (42-54); MEAN CORPUSCULAR HEMOGLOBIN 30.6 pg (27.0-33.0); MEAN CORPUSCULAR HGB CONC 33.4 g/dL (32.0-36.0); MEAN CORPUSCULAR VOLUME 91.6 fL (79-99); NUCLEATED RED BLOOD CELLS 0.2 % (0.0-0.19); PLATELET COUNT (AUTO) 236 K/uL (130-400); RED BLOOD CELL COUNT(AUTO) 2.63 MIL/uL (4.50-6.20); RED CELL DISTRIBUTION WIDTH 13.8 % (11.0-15.5); WHITE BLOOD COUNT (AUTO) 6.5 K/uL (4.8-10.8)
[2019-02-26 05:59] LABS: CREATININE 2.7 mg/dL (0.5-1.5); POTASSIUM 3.5 mmol/L (3.5-5.1)
[2019-02-26] MEDS: INSULIN HUMULIN R 100 UNIT/ML 3ML SQ SCH ×4 (06:16→22:12)
[2019-02-26] MEDS: INSULIN GLARGINE 100 UNITS/ML 10 ML VIAL SQ SCH ×2 (06:17→22:12)
[2019-02-26] MEDS: IPRATROPIUM/ALBUTEROL SULFATE 3 ML SOLUTION IH SCH ×4 (06:38→23:35)
[2019-02-26 07:00] VITALS: BP 126/67
[2019-02-26] MEDS: BUDESONIDE 0.5 MG/2 ML INH IH SCH ×2 (07:05→18:47)
[2019-02-26] MEDS: ASPIRIN 325MG EC TAB 325 MG TABLET.DR PO SCH (07:16)
[2019-02-26] MEDS: AMLODIPINE BESYLATE 5 MG TAB PO SCH (07:16)
[2019-02-26] MEDS: MINOXIDIL 2.5 MG TAB PO SCH (07:16)
[2019-02-26] MEDS: FAMOTIDINE/PF 20 MG/2 ML VIAL IV SCH (07:17)
[2019-02-26] MEDS: FUROSEMIDE 10 MG/ML 4ML VIAL IV SCH ×2 (07:17→19:55)
[2019-02-26] MEDS: ENOXAPARIN SODIUM 40 MG/0.4 ML SYRINGE SQ SCH (07:19)
[2019-02-26] MEDS: METOPROLOL TARTRATE 25 MG TAB PO SCH ×2 (07:24→19:55)
[2019-02-26] MEDS: EPOETIN ALFA 10,000 UNIT/ML VIAL SQ SCH (12:08)
--- NOTE | 2019-02-26 15:29 | NUR ---
DC PLAN VISITED WITH PATIENT AND SPOUSE. [place] SIGNED FOR [facility]. EXPLAINED NEED TO BE ABLE TO DO 3 HRS OF THERAPY. INFO SENT TO [facility]. Addendum: 02/26/19 at 1531 by FESTUS CEDENO RN CM Amended: Links added.
[2019-02-26 16:00] VITALS: BP 135/69
--- NOTE | 2019-02-26 16:50 | NUR ---
Nutrition Intervention: Nutrition screen based on LOS x 6 days. Pt. asleep during visit. 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 Pt. on Renal Non Dialysis diet with good p.o. intake, per pt's spouse. Labs reviewed(Alb 2.2, BUN 72, Creat 2.7, GFR 26, BG 196, HgbA1c 8.1%). LBM: 02/25/19, loose. Pt. with 1+ Edema BLE. Pt's spouse educated on Diabetic Renal Non Dialysis diet and provided with education material. Pt's spouse verbalized understanding. Recommendations: 1) Continue current diet. 2) Diabetic Renal Non Dialysis diet education given to pt's spouse. 3) Continue to monitor pt's nutritional status. 4) Consult RD as nutrition concerns arise. Addendum: 02/26/19 at [address] Amended: Links added.
[2019-02-26 19:49] VITALS: BP 117/65
[2019-02-26] MEDS: IRON SUCROSE COMPLEX 100 MG in SODIUM CHLORIDE 0.9% 50 ML IV SCH (19:54)
[2019-02-26] MEDS: ATORVASTATIN CALCIUM 40 MG TABLET PO SCH (19:55)
[2019-02-26] MEDS: TAMSULOSIN HCL 0.4 MG CAP.ER.24H PO SCH (19:55)
[2019-02-27] VITALS (7 sets, daily range): BP systolic 122–149; BP diastolic 55–71
--- NOTE | 2019-02-27 | NUR ---
PT HAS BEENS STABLE. BEING ENCOURAGED TO ASSIST IN TRANSFERS AND INCREASE ACTIVITY LEVELS. PT AAO3. PERRLA. AT BEDSIDE. C/O OF PAIN TO THE BACK AND CHEST INCISION SITE. BEDBATH GIVEN BY PC AT THIS TIME.
[2019-02-27] MEDS: HYDROCODONE/ACETAMINOPHEN 5/325 MG TAB PO PRN ×4 (00:48→17:12)
[2019-02-27] MEDS: TRAMADOL HCL 50 MG TABLET PO PRN ×3 (02:28→20:56)
[2019-02-27 03:41] LABS: HEMATOCRIT 24.9 % (42-54); MEAN CORPUSCULAR HEMOGLOBIN 31.1 pg (27.0-33.0); MEAN CORPUSCULAR HGB CONC 33.8 g/dL (32.0-36.0); MEAN CORPUSCULAR VOLUME 92.1 fL (79-99); NUCLEATED RED BLOOD CELLS 0.1 % (0.0-0.19); PLATELET COUNT (AUTO) 259 K/uL (130-400); RED BLOOD CELL COUNT(AUTO) 2.71 MIL/uL (4.50-6.20); WHITE BLOOD COUNT (AUTO) 9.1 K/uL (4.8-10.8)
[2019-02-27 03:55] LABS: CREATININE 2.5 mg/dL (0.5-1.5); POTASSIUM 3.7 mmol/L (3.5-5.1)
[2019-02-27 04:10] LABS: BAND NEUTROPHILS % (MANUAL) 12 % (0-2); LYMPHOCYTES % (MANUAL) 17 % (22-44); MAN.DIFF COMMENT-IMPRESSION MANUAL DIFFERENTIAL; MONOCYTES % (MANUAL) 2 % (2-9); PLATELET MORPHOLOGY COMMENT ADEQUATE; SEGMENTED NEUTROPHILS % 69 % (40-70)
[2019-02-27] MEDS: POTASSIUM CHLORIDE 20 MEQ ERTAB PO PRN ×2 (06:11→08:24)
[2019-02-27] MEDS: INSULIN HUMULIN R 100 UNIT/ML 3ML SQ SCH ×4 (06:40→22:49)
[2019-02-27] MEDS: IPRATROPIUM/ALBUTEROL SULFATE 3 ML SOLUTION IH SCH ×3 (06:44→19:17)
[2019-02-27] MEDS: INSULIN GLARGINE 100 UNITS/ML 10 ML VIAL SQ SCH ×2 (06:49→22:49)
[2019-02-27] MEDS: FAMOTIDINE/PF 20 MG/2 ML VIAL IV SCH (07:25)
[2019-02-27] MEDS: METOPROLOL TARTRATE 25 MG TAB PO SCH ×2 (07:25→20:56)
[2019-02-27] MEDS: MINOXIDIL 2.5 MG TAB PO SCH (07:25)
[2019-02-27] MEDS: ASPIRIN 325MG EC TAB 325 MG TABLET.DR PO SCH (07:25)
[2019-02-27] MEDS: ENOXAPARIN SODIUM 40 MG/0.4 ML SYRINGE SQ SCH (07:26)
[2019-02-27] MEDS: FUROSEMIDE 10 MG/ML 4ML VIAL IV SCH (07:26)
[2019-02-27] MEDS: AMLODIPINE BESYLATE 5 MG TAB PO SCH (07:27)
[2019-02-27] MEDS: BUDESONIDE 0.5 MG/2 ML INH IH SCH ×2 (10:10→19:17)
[2019-02-27] MEDS: IRON SUCROSE COMPLEX 100 MG in SODIUM CHLORIDE 0.9% 50 ML IV SCH (20:56)
[2019-02-27] MEDS: TAMSULOSIN HCL 0.4 MG CAP.ER.24H PO SCH (20:56)
[2019-02-27] MEDS: FUROSEMIDE 10 MG/ML 2ML VIAL IV SCH (20:57)
[2019-02-27] MEDS: ATORVASTATIN CALCIUM 40 MG TABLET PO SCH (20:59)
[2019-02-28] MEDS: IPRATROPIUM/ALBUTEROL SULFATE 3 ML SOLUTION IH SCH ×5 (00:30→23:36)
[2019-02-28] MEDS: HYDROCODONE/ACETAMINOPHEN 5/325 MG TAB PO PRN ×2 (01:35→21:10)
[2019-02-28 04:26] LABS: CREATININE 2.6 mg/dL (0.5-1.5); POTASSIUM 3.9 mmol/L (3.5-5.1)
[2019-02-28 04:56] LABS: HEMATOCRIT 24.3 % (42-54); MEAN CORPUSCULAR HEMOGLOBIN 30.9 pg (27.0-33.0); MEAN CORPUSCULAR HGB CONC 33.9 g/dL (32.0-36.0); MEAN CORPUSCULAR VOLUME 91.2 fL (79-99); NUCLEATED RED BLOOD CELLS 0.1 % (0.0-0.19); PLATELET COUNT (AUTO) 259 K/uL (130-400); RED BLOOD CELL COUNT(AUTO) 2.66 MIL/uL (4.50-6.20)
[2019-02-28 04:57] VITALS: BP 132/67
--- NOTE | 2019-02-28 05:00 | NUR ---
PT HAS BEEN STABLE. IMPROVING IN ACTIVITY LEVEL. ABLE TO ASSIST IN REPOSITIONING. WAS ABLE TO AMBULATE WITH WALKER AROUND ROOM WITH PT.
[2019-02-28] MEDS: BUDESONIDE 0.5 MG/2 ML INH IH SCH ×2 (05:33→18:45)
[2019-02-28 05:39] LABS: EOSINOPHILS % (MANUAL) 3 % (1-6); LYMPHOCYTES % (MANUAL) 19 % (22-44); MONOCYTES % (MANUAL) 7 % (2-9); SEGMENTED NEUTROPHILS % 71 % (40-70)
[2019-02-28 05:40] LABS: MAN.DIFF COMMENT-IMPRESSION MANUAL DIFFERENTIAL; PLATELET MORPHOLOGY COMMENT ADEQUATE
[2019-02-28] MEDS: INSULIN HUMULIN R 100 UNIT/ML 3ML SQ SCH ×4 (06:44→21:16)
[2019-02-28] MEDS: INSULIN GLARGINE 100 UNITS/ML 10 ML VIAL SQ SCH ×2 (07:35→21:00)
--- NOTE | 2019-02-28 07:40 | NUR ---
ASSESSMENT ENCOUNTERED PT ASLEEP BUT AROUSEABLE, A&OX3, CALM COOPERATIVE AND DOES NOT APPEAR TO BE IN ANY DISTRESS NOR ANY NEURO DEFICITS PRESENT. PT DENIES PAIN, SOB, NAUSEA. STERNAL INCISION DOES HAVE SOME REDNESS TO SUPERIOR PORTION OF INCISION WITH SEROUS DRAINAGE. INCENTIVE SPIROMETRY UP TO 1500ML AVERAGE PER ATTEMPT. CALL LIGHT WITHIN REACH, FAMILY AT BEDSIDE.
[2019-02-28 08:04] VITALS: BP 116/65
[2019-02-28] MEDS: METOPROLOL TARTRATE 25 MG TAB PO SCH ×2 (10:48→21:10)
[2019-02-28] MEDS: FAMOTIDINE/PF 20 MG/2 ML VIAL IV SCH (10:48)
[2019-02-28] MEDS: MINOXIDIL 2.5 MG TAB PO SCH (10:48)
[2019-02-28] MEDS: ASPIRIN 325MG EC TAB 325 MG TABLET.DR PO SCH (10:48)
[2019-02-28] MEDS: AMLODIPINE BESYLATE 5 MG TAB PO SCH (10:48)
[2019-02-28] MEDS: ENOXAPARIN SODIUM 40 MG/0.4 ML SYRINGE SQ SCH (10:49)
[2019-02-28] MEDS: FUROSEMIDE 10 MG/ML 2ML VIAL IV SCH ×2 (10:49→17:07)
[2019-02-28 11:39] VITALS: BP 126/69
[2019-02-28 15:48] VITALS: BP 120/60
[2019-02-28] MEDS ORDERED: FUROSEMIDE 10 MG/ML 2ML VIAL IV ONE (19:00)
[2019-02-28 19:56] VITALS: BP 150/76
[2019-02-28] MEDS: CEPHALEXIN 500 MG CAPSULE PO SCH (21:10)
[2019-02-28] MEDS: ATORVASTATIN CALCIUM 40 MG TABLET PO SCH (21:10)
[2019-02-28] MEDS: TAMSULOSIN HCL 0.4 MG CAP.ER.24H PO SCH (21:10)
--- NOTE | 2019-02-28 21:30 | NUR ---
pt with glucometer 187, lantus 50 units held due to pt with poor appetite.
[2019-02-28 23:51] VITALS: BP 136/73
[2019-03-01 04:00] VITALS: BP 116/58
[2019-03-01] MEDS: FUROSEMIDE 10 MG/ML 2ML VIAL IV SCH ×3 (05:06→17:10)
[2019-03-01] MEDS: IPRATROPIUM/ALBUTEROL SULFATE 3 ML SOLUTION IH SCH ×3 (05:32→19:46)
[2019-03-01] MEDS: BUDESONIDE 0.5 MG/2 ML INH IH SCH ×2 (05:32→19:59)
[2019-03-01] MEDS: HYDROCODONE/ACETAMINOPHEN 5/325 MG TAB PO PRN ×3 (06:35→18:34)
[2019-03-01 07:00] VITALS: BP 123/65
[2019-03-01] MEDS: INSULIN HUMULIN R 100 UNIT/ML 3ML SQ SCH ×4 (07:15→20:48)
[2019-03-01] MEDS: INSULIN GLARGINE 100 UNITS/ML 10 ML VIAL SQ SCH ×2 (07:15→20:49)
[2019-03-01] MEDS: ASPIRIN 325MG EC TAB 325 MG TABLET.DR PO SCH (07:34)
[2019-03-01] MEDS: METOPROLOL TARTRATE 25 MG TAB PO SCH ×2 (07:34→20:47)
[2019-03-01] MEDS: AMLODIPINE BESYLATE 5 MG TAB PO SCH (07:34)
[2019-03-01] MEDS: MINOXIDIL 2.5 MG TAB PO SCH (07:34)
[2019-03-01] MEDS: CEPHALEXIN 500 MG CAPSULE PO SCH ×2 (07:34→20:47)
[2019-03-01] MEDS: FAMOTIDINE/PF 20 MG/2 ML VIAL IV SCH (07:34)
[2019-03-01] MEDS: ENOXAPARIN SODIUM 40 MG/0.4 ML SYRINGE SQ SCH (07:35)
[2019-03-01] MEDS: TRAMADOL HCL 50 MG TABLET PO PRN (10:38)
[2019-03-01 11:00] VITALS: BP 104/51
[2019-03-01 15:00] VITALS: BP 143/64
[2019-03-01 19:00] VITALS: BP 112/56
[2019-03-01] MEDS: ATORVASTATIN CALCIUM 40 MG TABLET PO SCH (20:47)
[2019-03-01] MEDS: TAMSULOSIN HCL 0.4 MG CAP.ER.24H PO SCH (20:47)
[2019-03-01 23:00] VITALS: BP 104/58
[2019-03-02] MEDS: IPRATROPIUM/ALBUTEROL SULFATE 3 ML SOLUTION IH SCH ×5 (00:18→23:20)
[2019-03-02] MEDS: HYDROCODONE/ACETAMINOPHEN 5/325 MG TAB PO PRN ×5 (00:59→22:04)
[2019-03-02 03:00] VITALS: BP 122/59
[2019-03-02] MEDS: INSULIN GLARGINE 100 UNITS/ML 10 ML VIAL SQ SCH ×2 (06:32→22:55)
[2019-03-02] MEDS: INSULIN HUMULIN R 100 UNIT/ML 3ML SQ SCH ×4 (06:33→22:51)
[2019-03-02] MEDS: BUDESONIDE 0.5 MG/2 ML INH IH SCH ×2 (06:49→18:26)
[2019-03-02 07:25] VITALS: BP 130/58
[2019-03-02] MEDS: AMLODIPINE BESYLATE 5 MG TAB PO SCH (10:07)
[2019-03-02] MEDS: FUROSEMIDE 40 MG TABLET PO SCH ×2 (10:07→17:23)
[2019-03-02] MEDS: CEPHALEXIN 500 MG CAPSULE PO SCH ×2 (10:08→20:16)
[2019-03-02] MEDS: FAMOTIDINE/PF 20 MG/2 ML VIAL IV SCH (10:08)
[2019-03-02] MEDS: ASPIRIN 325MG EC TAB 325 MG TABLET.DR PO SCH (10:08)
[2019-03-02] MEDS: MINOXIDIL 2.5 MG TAB PO SCH (10:08)
[2019-03-02] MEDS: METOPROLOL TARTRATE 25 MG TAB PO SCH ×2 (10:08→20:17)
[2019-03-02] MEDS: ENOXAPARIN SODIUM 40 MG/0.4 ML SYRINGE SQ SCH (10:10)
[2019-03-02 11:36] VITALS: BP 113/55
[2019-03-02] MEDS: TRAMADOL HCL 50 MG TABLET PO PRN ×2 (13:41→20:17)
[2019-03-02 14:58] LABS: HEMATOCRIT 25.2 % (42-54); MEAN CORPUSCULAR HGB CONC 34.5 g/dL (32.0-36.0); MEAN CORPUSCULAR VOLUME 89.9 fL (79-99); PLATELET COUNT (AUTO) 337 K/uL (130-400); RED CELL DISTRIBUTION WIDTH 14.1 % (11.0-15.5)
[2019-03-02 15:10] LABS: CREATININE 3.1 mg/dL (0.5-1.5); POTASSIUM 3.8 mmol/L (3.5-5.1)
[2019-03-02 15:17] VITALS: BP 113/50
--- NOTE | 2019-03-02 15:50 | NUR ---
cm note spoke to Junior at [facility] and states pt is still pending approval. from insurance, will let cm know if approved.
[2019-03-02] MEDS: POTASSIUM CHLORIDE 20 MEQ ERTAB PO PRN (17:26)
--- NOTE | 2019-03-02 20:01 | NUR ---
INITIAL ASSESSMENT Addendum: 03/02/19 at 2004 by KAYCEE LEROY RN RN INITIAL ASSESSMENT PATIENT IS RESTING IN BED. ALERT AND ORIENTED X4. PATIENTS FAMILY AT BEDSIDE. NO SIGNS OF DISTRESS. COMPLAINS OF MINOR PAIN WHICH WILL TREAT WITH ORDERED PRN MEDICATIONS. PATIENTS COMPLAINS OF NO SHORTNESS OF BREATH. PATIENT IS TURNED AND MADE COMFORTABLE. HEART PILLOW IN PATIENTS LAP. CALL LIGHT IN REACH. PATIENTS BEDSIDE TABLE WITHIN REACH. NO QUESTIONS, COMPLAINTS, OR NEEDS AT THIS TIME.
[2019-03-02] MEDS: TAMSULOSIN HCL 0.4 MG CAP.ER.24H PO SCH (20:16)
[2019-03-02] MEDS: ATORVASTATIN CALCIUM 40 MG TABLET PO SCH (20:17)
[2019-03-02 20:23] VITALS: BP 154/70
--- NOTE | 2019-03-02 22:00 | NUR ---
BATHED PATIENT WAS ASSISTED TO RECLINER. PATIENT WAS BATHED. ALL SHEETS WERE CHANGED. WAFFLE MATTRESS WAS ADDED TO THE BED BY FAMILY. PAIN MEDICATION WAS GIVEN AT THIS TIME. PATIENT WAS ASSISTED BACK INTO BED. MADE COMFORTABLE. NO COMPLAINTS AT THIS TIME. CALL LIGHT PLACED WITHIN REACH. PATIENTS HEART PILLOW IS ON LAP. PATIENT IS TURNED WITH PILLOWS PLACED UNDER BACK.
[2019-03-02 23:13] VITALS: BP 107/69
--- NOTE | 2019-03-03 00:26 | NUR ---
ASSESSMENT PATIENT IS REST IN BED. FAMILY IS AT BEDSIDE. NO COMPLAINTS OF PAIN AT THIS TIME. NO SIGNS OF DISTRESS. NO SHORTNESS OF BREATH. PATIENTS CALL LIGHT IS WITHIN REACH. PATIENTS BEDSIDE TABLE IS WITHIN REACH. NO QUESTIONS, CONCERNS, COMPLAINTS, AND OR NEEDS AT THIS TIME.
[2019-03-03 03:53] VITALS: BP 128/65
--- NOTE | 2019-03-03 04:00 | NUR ---
ASSESSMENT PATIENT TURNED IN BED AND MADE COMFORTABLE. NO COMPLAINTS OF PAIN AT THIS TIME. NO SIGNS OF DISTRESS. NO SHORTNESS OF BREATH. PATIENT CURRENTLY HAS CPAP FROM HOME IN PLACE. CALL LIGHT IS WITHIN REACH. BEDSIDE TABLE IS WITHIN REACH. IS AT BEDSIDE. PATIENT VOICES NO QUESTIONS, CONCERNS, OR NEEDS AT THIS TIME.
[2019-03-03] MEDS: HYDROCODONE/ACETAMINOPHEN 5/325 MG TAB PO PRN ×2 (05:02→20:27)
[2019-03-03] MEDS: IPRATROPIUM/ALBUTEROL SULFATE 3 ML SOLUTION IH SCH ×4 (06:35→23:36)
[2019-03-03] MEDS: BUDESONIDE 0.5 MG/2 ML INH IH SCH ×2 (06:53→18:44)
[2019-03-03 07:25] VITALS: BP 120/66
--- NOTE | 2019-03-03 08:00 | NUR ---
ASSESSMENT PT IS AAOX4 DENIES CP DENIES SOB DENIES NV RESTING SITTING UPRIGHT IN CARDIAC CHAIR. NO COMPLAINTS, BREATHING PATTERN IS EVEN AND UNLABORED. STERNAL INCISION IS CLEAN DRY AND INTACT, ENCOURAGED COUGH AND DEEP BREATHING WITH HEART PILLOW SPLINTING AND USE OF IS 10XS Q1HR WHILE AWAKE. FAMILY IS AT BEDSIDE, CALL LIGHT WITHIN REACH. AM MEDS GIVEN.
[2019-03-03] MEDS: ASPIRIN 325MG EC TAB 325 MG TABLET.DR PO SCH (08:08)
[2019-03-03] MEDS: AMLODIPINE BESYLATE 5 MG TAB PO SCH (08:08)
[2019-03-03] MEDS: MINOXIDIL 2.5 MG TAB PO SCH (08:08)
[2019-03-03] MEDS: CEPHALEXIN 500 MG CAPSULE PO SCH ×2 (08:08→20:27)
[2019-03-03] MEDS: FAMOTIDINE/PF 20 MG/2 ML VIAL IV SCH (08:08)
[2019-03-03] MEDS: METOPROLOL TARTRATE 25 MG TAB PO SCH ×2 (08:08→20:27)
[2019-03-03] MEDS: ENOXAPARIN SODIUM 40 MG/0.4 ML SYRINGE SQ SCH (08:09)
[2019-03-03] MEDS: INSULIN GLARGINE 100 UNITS/ML 10 ML VIAL SQ SCH ×2 (08:11→22:39)
[2019-03-03] MEDS: INSULIN HUMULIN R 100 UNIT/ML 3ML SQ SCH ×4 (08:11→22:40)
[2019-03-03] MEDS: FUROSEMIDE 40 MG TABLET PO SCH ×2 (08:13→09:00)
[2019-03-03] MEDS: TRAMADOL HCL 50 MG TABLET PO PRN ×2 (10:20→18:27)
[2019-03-03 11:20] VITALS: BP 109/55
--- NOTE | 2019-03-03 12:15 | NUR ---
DR JENKINS ROUNDED SAW PATIENT, ORDERS RECEIVED
[2019-03-03 15:30] VITALS: BP 114/64
[2019-03-03 17:03] LABS: APPEARANCE,URINE Clear (CLEAR); BILIRUBIN,URINE Negative (NEGATIVE); COLOR,URINE Yellow (YELLOW); GLUCOSE, URINE (UA) TRACE mg/dL (NEGATIVE); KETONES,URINE Negative (NEGATIVE); LEUKOCYTE ESTERASE ,URINE Negative (NEGATIVE); NITRATE,URINE Negative (NEGATIVE); OCCULT BLOOD,URINE Small (NEGATIVE); PROTEIN,URINE POS 2+ mg/dL (NEGATIVE)
[2019-03-03 17:18] LABS: BACTERIA,URINE Few /HPF (None Seen); WBC,URINE 0-1 /HPF (0-1)
[2019-03-03 17:19] LABS: HYALINE CASTS, URINE 0-1 /LPF (0-1 /LPF); SQUAMOUS EPITHELIAL CELL,UR Few /HPF (0-2)
[2019-03-03 19:00] VITALS: BP 123/69
--- NOTE | 2019-03-03 19:18 | NUR ---
INITIAL ASSESSMENT PATIENT IS RESTING IN BED. ALERT AND ORIENTED X4. NO COMPLAINTS OF PAIN AT THIS TIME. NO SIGNS OF DISTRESS. NO SHORTNESS OF BREATH AT THIS TIME. FAMILY IS AT BEDSIDE. CALL LIGHT IS WITHIN REACH. BEDSIDE TABLE WITHIN REACH. NO QUESTIONS, CONCERNS, OR NEEDS AT THIS TIME.
[2019-03-03] MEDS: TAMSULOSIN HCL 0.4 MG CAP.ER.24H PO SCH (20:27)
[2019-03-03] MEDS: ATORVASTATIN CALCIUM 40 MG TABLET PO SCH (20:27)
[2019-03-03 23:00] VITALS: BP 123/58
--- NOTE | 2019-03-04 | NUR ---
ASSESSMENT PATIENT IS RESTING IN BED. NO SIGNS OF DISTRESS. WITH MINOR COMPLAINTS OF PAIN. TREATED WITH PRN MED AVAILABLE. PATIENTS IS AT BEDSIDE. NO SIGNS OR COMPLAINTS OF SHORTNESS OF BREATH. PATIENTS CALL LIGHT IS WITHIN REACH. BEDSIDE TABLE WITHIN REACH. NO QUESTIONS, CONCERNS, OR NEEDS AT THIS TIME.
[2019-03-04] MEDS: TRAMADOL HCL 50 MG TABLET PO PRN ×3 (00:01→12:52)
[2019-03-04 03:00] VITALS: BP 119/57
[2019-03-04 04:00] LABS: HEMATOCRIT 22.9 % (42-54); MEAN CORPUSCULAR HEMOGLOBIN 30.6 pg (27.0-33.0); MEAN CORPUSCULAR HGB CONC 34.4 g/dL (32.0-36.0); MEAN CORPUSCULAR VOLUME 88.9 fL (79-99); PLATELET COUNT (AUTO) 316 K/uL (130-400); RED BLOOD CELL COUNT(AUTO) 2.57 MIL/uL (4.50-6.20); RED CELL DISTRIBUTION WIDTH 14.3 % (11.0-15.5); WHITE BLOOD COUNT (AUTO) 8.9 K/uL (4.8-10.8)
--- NOTE | 2019-03-04 04:00 | NUR ---
ASSESSMENT PATIENT IS RESTING. MINOR COMPLAINTS OF PAIN AT THIS TIME TREATED WITH PRN MEDICATIONS. NO SIGNS OF DISTRESS. NO COMPLAINTS OR SIGNS OF SHORTNESS OF BREATH. CALL LIGHT WITHIN REACH. BEDSIDE TABLE WITHIN REACH. REMAINS AT BEDSIDE. NO QUESTIONS, CONCERNS, OR NEEDS AT THIS TIME.
[2019-03-04 04:13] LABS: CREATININE 3.4 mg/dL (0.5-1.5); PHOSPHORUS 5.8 mg/dL (2.5-4.9); POTASSIUM 3.8 mmol/L (3.5-5.1); URIC ACID 13.1 mg/dL (2.6-7.2)
[2019-03-04] MEDS: HYDROCODONE/ACETAMINOPHEN 5/325 MG TAB PO PRN ×4 (04:34→22:02)
[2019-03-04] MEDS: IPRATROPIUM/ALBUTEROL SULFATE 3 ML SOLUTION IH SCH ×4 (06:43→23:37)
[2019-03-04] MEDS: BUDESONIDE 0.5 MG/2 ML INH IH SCH ×2 (07:01→18:51)
[2019-03-04 07:30] VITALS: BP 138/70
[2019-03-04] MEDS: INSULIN HUMULIN R 100 UNIT/ML 3ML SQ SCH ×4 (07:30→21:24)
[2019-03-04] MEDS: FAMOTIDINE/PF 20 MG/2 ML VIAL IV SCH (10:03)
[2019-03-04] MEDS: ASPIRIN 325MG EC TAB 325 MG TABLET.DR PO SCH (10:03)
[2019-03-04] MEDS: MINOXIDIL 2.5 MG TAB PO SCH (10:04)
[2019-03-04] MEDS: METOPROLOL TARTRATE 25 MG TAB PO SCH ×2 (10:04→20:44)
[2019-03-04] MEDS: ENOXAPARIN SODIUM 40 MG/0.4 ML SYRINGE SQ SCH (10:04)
[2019-03-04] MEDS: AMLODIPINE BESYLATE 5 MG TAB PO SCH (10:04)
[2019-03-04] MEDS: CEPHALEXIN 500 MG CAPSULE PO SCH ×2 (10:04→20:44)
[2019-03-04] MEDS: INSULIN GLARGINE 100 UNITS/ML 10 ML VIAL SQ SCH ×2 (10:21→21:25)
--- NOTE | 2019-03-04 11:14 | NUR ---
cm note spoke to kelli with [facility], states still pending insurance approval. provided clinical update to Kelli. will let cm know when approved.
[2019-03-04 11:25] VITALS: BP 118/55
[2019-03-04 15:30] VITALS: BP 141/57
--- NOTE | 2019-03-04 17:00 | NUR ---
cm notes spoke to dr osei and updated that pt has not been approved at [facility] updated him that as per Vadim at [facility] states should have response by tomorrow.
[2019-03-04 19:36] VITALS: BP 130/61
[2019-03-04] MEDS: TAMSULOSIN HCL 0.4 MG CAP.ER.24H PO SCH (20:44)
[2019-03-04] MEDS: ATORVASTATIN CALCIUM 40 MG TABLET PO SCH (20:44)
--- NOTE | 2019-03-04 20:44 | NUR ---
MEDS SHIFT ASSESSMENT DONE, PLEASE REFER TO CHART. DUE MEDS ADMINISTERED, TOLERATED WELL. CALL LIGHT WITHIN REACH. FAMILY IN ROOM. WILL MONITOR PT. Addendum: 03/05/19 at 0218 by THEO BROWNE RN RN Amended: Links added.
--- NOTE | 2019-03-04 22:02 | NUR ---
PAIN PT CALLS FOR PAIN MEDICATION, CLAIMS OF PAIN ON HIS BUTTOCKS. PT ALREADY ON HOME CPAP MACHINE READY TO SLEEP. NORCO PO ADMINISTERED. RE-POSITIONED ON HIS SIDE COMFORTABLY. WILL RE-ASSESS PT.
[2019-03-04 23:26] VITALS: BP 105/53
[2019-03-05] MEDS: TRAMADOL HCL 50 MG TABLET PO PRN ×3 (00:38→15:26)
--- NOTE | 2019-03-05 00:38 | NUR ---
PAIN PT CALLS FOR PAIN MEDS, CLAIMS OF PAINS ON HIS BUTTOCKS. MEDICATED WITH TRAMADOL PO. RE-POSITIONED ON HIS SIDE. WILL RE-ASSESS PT.
[2019-03-05] MEDS: HYDROCODONE/ACETAMINOPHEN 5/325 MG TAB PO PRN (03:14)
--- NOTE | 2019-03-05 03:14 | NUR ---
PAIN PT CALLS AND COMPLAINTS OF HEADACHE. MEDICATED WITH NORCO PO. KEPT COMFORTABLE IN BED. CALL LIGHT WITHIN REACH. WILL RE-ASSESS PT.
[2019-03-05 03:41] VITALS: BP 108/51
[2019-03-05 04:19] LABS: HEMATOCRIT 23.9 % (42-54); MEAN CORPUSCULAR HGB CONC 34.3 g/dL (32.0-36.0); MEAN CORPUSCULAR VOLUME 90.3 fL (79-99); PLATELET COUNT (AUTO) 312 K/uL (130-400); RED BLOOD CELL COUNT(AUTO) 2.65 MIL/uL (4.50-6.20); WHITE BLOOD COUNT (AUTO) 9.9 K/uL (4.8-10.8)
[2019-03-05 04:36] LABS: CREATININE 3.5 mg/dL (0.5-1.5); PHOSPHORUS 6.3 mg/dL (2.5-4.9); POTASSIUM 3.8 mmol/L (3.5-5.1)
[2019-03-05] MEDS: INSULIN GLARGINE 100 UNITS/ML 10 ML VIAL SQ SCH ×2 (06:03→21:35)
[2019-03-05] MEDS: INSULIN HUMULIN R 100 UNIT/ML 3ML SQ SCH ×4 (06:03→21:00)
--- NOTE | 2019-03-05 06:03 | NUR ---
MEDS PT ALREADY AWAKE, DENIES ANY PAINS AT THIS TIME. DUE INSULIN DOSES ADMINISTERED, TOLERATED WELL. RE-POSITIONED COMFORTABLY IN BED. FOR MORE CARE.
[2019-03-05] MEDS: IPRATROPIUM/ALBUTEROL SULFATE 3 ML SOLUTION IH SCH ×3 (06:37→19:28)
[2019-03-05] MEDS: BUDESONIDE 0.5 MG/2 ML INH IH SCH ×2 (06:59→19:50)
[2019-03-05 08:01] VITALS: BP 125/40
--- NOTE | 2019-03-05 08:15 | NUR ---
AM ASSESSMENT PT SITTING IN CARDIAC RECLINER. FAMILY @ BEDSIDE. A/O X 3. NO SOB. NO DISTRESS NOTED. DENIES CHEST PAIN OR DISCOMFORT. DENIES INCISIONAL PAIN @ THIS TIME. STERNAL INCISION WELL APPROX, NO DRAINAGE NOTED. TELE: SR 80s. DENIES N/V AND/OR DIARRHEA. UP W/ASSISTANCE & WALKER. STERNAL PRECAUTIONS REINFORCED. IS 2000, IMPORTANCE & PURPOSE REINFORCED. INSTRUCTED TO CALL FOR ASSISTANCE. CALL ADDY W/IN REACH.
[2019-03-05] MEDS ORDERED: FAMOTIDINE 20MG TAB 20 MG TAB PO SCH (09:00)
[2019-03-05] MEDS: MINOXIDIL 2.5 MG TAB PO SCH (09:29)
[2019-03-05] MEDS: METOPROLOL TARTRATE 25 MG TAB PO SCH ×2 (09:29→21:29)
[2019-03-05] MEDS: CEPHALEXIN 500 MG CAPSULE PO SCH ×2 (09:29→21:30)
[2019-03-05] MEDS: AMLODIPINE BESYLATE 5 MG TAB PO SCH (09:29)
[2019-03-05] MEDS: ASPIRIN 325MG EC TAB 325 MG TABLET.DR PO SCH (09:30)
[2019-03-05] MEDS: ENOXAPARIN SODIUM 40 MG/0.4 ML SYRINGE SQ SCH (09:30)
--- NOTE | 2019-03-05 10:00 | NUR ---
cm note marie from [facility] here and upated that clinical provided to isaac 03/04/19. states they are stillpending insurance approval will let cm know.
[2019-03-05 12:24] VITALS: BP 141/62
[2019-03-05] MEDS: EPOETIN ALFA 10,000 UNIT/ML VIAL SQ SCH (14:58)
--- NOTE | 2019-03-05 14:59 | NUR ---
RD NOTIFICATION/ FOLLOW UP DX: ACUTE ON CHRONIC RENAL FAILURE, CAD, ANEMIA. DIET: RENAL NON-DIALYSIS, 75GM CCD. MEDS: FLOMAX, LIPITOR, DUONEB, PULMICORT, ZOFRAN, ULTRAM, ASPRIN, LOPRESSOR, HUMULIN R, NORVASC, LANTUS, LOVENOX, NORCO, PROCRIT, PEPCID. LABS: Na 134, BUN 79, CRE 3.5, GFR 19, BG 203, PHOS 6.3, A1C 8.1, TG 373, TIBC 230, ALB 2.2. PO: 100% AND HAS GOOD APPETITE PER PT AND FAMILY. LBM: 03/04/19. PT STATED HE HAS HAD DIARRHEA FOR SEVERAL MONTHS NOW. PT WAS SCHEDULED FOR ENDOSCOPY AND COLONOSCOPY IN THE PAST DUE TO PERSISTENT DIARRHEA, HOWEVER NEVER GOT AROUND TO IT PER FAMILY. RD RECOMMENDS TO CONTINUE CURRENT DIET. RD WILL CONTINUE TO MONITOR AND FOLLOW UP NEEDED. Addendum: 03/05/19 at [address] Amended: Links added.
[2019-03-05 15:44] VITALS: BP 117/53
[2019-03-05] MEDS: ATORVASTATIN CALCIUM 40 MG TABLET PO SCH (21:29)
[2019-03-05] MEDS: TAMSULOSIN HCL 0.4 MG CAP.ER.24H PO SCH (21:29)
--- NOTE | 2019-03-05 21:37 | NUR ---
, Doctor Boateng doing rounds, signed Medication reconciliation record. Patient ok to go home. Given Folder with discharge instructions, follow appointments with appropriate PCP's , pt stable, good and no distress noted. Pt and family verbalize understanding, voices no further questions.
== END 2019-03-05 22:05 | disposition home or self-care (01) | DRG 166 ==
LOC: EDSTATUS 09:00 → DAHIP 02-20 06:32 → 2CV 02-20 09:55 → 2CH 02-21 17:38 → 2DH 02-23 10:30
PROVIDERS: ADMIT Thoracic Surgery (Cardiothoracic Vascular Surgery); ATTEND Thoracic Surgery (Cardiothoracic Vascular Surgery)
PROC: 06BQ3ZZ Excision of Left Saphenous Vein, Percutaneous Approach (ICD-10-PCS; 2019-02-20)
PROC: 0212099 Bypass Coronary Artery, Three Arteries from Left Internal Mammary with Autologous Venous Tissue, Open Approach (ICD-10-PCS; principal; 2019-02-20 08:28)
PROC: 021009W Bypass Coronary Artery, One Artery from Aorta with Autologous Venous Tissue, Open Approach (ICD-10-PCS; 2019-02-20 08:28)
DX: I25.10 Atherosclerotic heart disease of native coronary artery without angina pectoris (principal); J96.00 Acute respiratory failure, unspecified whether with hypoxia or hypercapnia; N17.9 Acute kidney failure, unspecified; Z68.43 Body mass index [BMI] 50.0-59.9, adult; N18.4 Chronic kidney disease, stage 4 (severe); E11.22 Type 2 diabetes mellitus with diabetic chronic kidney disease; D64.9 Anemia, unspecified; E66.2 Morbid (severe) obesity with alveolar hypoventilation; I12.9 Hypertensive chronic kidney disease with stage 1 through stage 4 chronic kidney disease, or unspecified chronic kidney disease; I25.5 Ischemic cardiomyopathy
CPT/HCPCS: 36415; 36600; 71045; 71046; 76770; 80048; 80053; 80061; 81001; 82330; 82435; 82803; 82947; 82948; 83036; 83540; 83550; 83605; 83735; 84100; 84132; 84295; 84550; 85018; 85025; 85027; 85347; 85610; 85730; 86850; 86900; 86901; 86922; 93005; 93880; 94002; 94010; 94150; 94640; 94660; 94664; 97039; A7048; G0378; J0171; J0282; J0330; J0610; J0690; J0885; J1644; J1650; J1756; J1815; J1940; J2001; J2250; J2270; J2440; J2704; J2720; J3010; J3475; J3480; J3490; J7030; J7040; J7120; P9045